=== PATIENT | female | born 1965 | race Two or more races ===

== ENCOUNTER 2019-08-24 10:45 | Emergency (ER) | payer MEDICAID ==
[~2019-08-24] VITALS: Ht 167.6 cm; Wt 64.0 kg
[2019-08-24] MEDS ORDERED: ONDANSETRON HCL 4MG/2ML INJ IV ONE (11:15)
[2019-08-24] MEDS ORDERED: MORPHINE SULFATE 4 MG/ML CPJ (NOT FOR IM USE) IV ONE (11:15)
[2019-08-24 14:10] VITALS: BP 102/62
== END 2019-08-24 14:24 | disposition home or self-care (01) ==
LOC: ER 10:45
DX: S82.841A Displaced bimalleolar fracture of right lower leg, initial encounter for closed fracture (principal); I10 Essential (primary) hypertension; E11.9 Type 2 diabetes mellitus without complications; R51 Headache; W01.0XXA Fall on same level from slipping, tripping and stumbling without subsequent striking against object, initial encounter; Y93.01 Activity, walking, marching and hiking; Y92.89 Other specified places as the place of occurrence of the external cause; Y99.8 Other external cause status
CPT/HCPCS: 29505; 73610; 82962; 96374; 96375; 99284; J2270; J2405